=== PATIENT | female | born 1980 | race Caucasian/White ===

== ENCOUNTER 2021-01-10 09:40 | Emergency (ER) | payer MEDICAID ==
[~2021-01-10] VITALS: Ht 165.1 cm; Wt 53.0 kg
[~2021-01-10 09:40] MED LIST: CIPR250T4 PO; MUPI15CR TOP; NITR100C6 PO; [UNRECOGNIZED DRUG - CODE] PO
[2021-01-10 10:04] VITALS: BP 132/77
[2021-01-10] MEDS ORDERED: SULF1TAB49 PO (10:52)
== END 2021-01-10 11:27 | disposition home or self-care (01) ==
LOC: ER 09:40
DX: K13.0 Diseases of lips (principal); Z79.2 Long term (current) use of antibiotics; Z79.899 Other long term (current) drug therapy
CPT/HCPCS: 99283

== ENCOUNTER 2021-12-19 13:16 | Outpatient (CLI) | payer MEDICAID | END 2021-12-19 23:59 | disposition home or self-care (01) | LOC: LAB 13:16 | PROVIDERS: ATTEND General Practice | DX: F11.20 Opioid dependence, uncomplicated (principal) | CPT/HCPCS: 93005 ==

== ENCOUNTER 2022-03-21 12:22 | Outpatient (CLI) | payer MEDICAID | END 2022-03-21 23:59 | disposition home or self-care (01) | LOC: RAD 12:22 | PROVIDERS: ATTEND General Practice | DX: I51.7 Cardiomegaly (principal); F11.20 Opioid dependence, uncomplicated | CPT/HCPCS: 93005 ==

== ENCOUNTER 2023-03-13 16:59 | Emergency (ER) | payer MEDICAID ==
[~2023-03-13] VITALS: Ht 165.1 cm; Wt 50.0 kg
[2023-03-13 17:17] VITALS: BP 131/82; PULSE 103; RESP 17; TEMP 98; O2SAT 98
[2023-03-13] MEDS ORDERED: CEPH-585 PO (20:20)
== END 2023-03-13 20:23 | disposition home or self-care (01) ==
LOC: ER 16:59
DX: S91.351A Open bite, right foot, initial encounter (principal); L03.115 Cellulitis of right lower limb; W57.XXXA Bitten or stung by nonvenomous insect and other nonvenomous arthropods, initial encounter; Y93.89 Activity, other specified; Y92.89 Other specified places as the place of occurrence of the external cause; Y99.8 Other external cause status
CPT/HCPCS: 99283

== ENCOUNTER 2024-10-31 15:58 | Emergency (ER) | payer MEDICAID ==
[~2024-10-31] VITALS: Ht 162.6 cm; Wt 50.0 kg
[2024-10-31 16:28] VITALS: BP 142/103; PULSE 102; RESP 19; O2SAT 97
[2024-10-31 18:15] VITALS: TEMP 97.8
== END 2024-10-31 18:16 | disposition home or self-care (01) ==
LOC: ER 15:58
DX: J06.9 Acute upper respiratory infection, unspecified (principal)
CPT/HCPCS: 71046; 99283